=== PATIENT | female | born 1985 | race African-American/Black ===

== ENCOUNTER 2016-04-06 21:58 | Emergency (ER) | payer SELFPAY ==
[~2016-04-06] VITALS: Ht 167.6 cm; Wt 61.5 kg
[2016-04-06 22:01] VITALS: BP 136/91; PULSE 79; RESP 18; TEMP 98; O2SAT 99
[2016-04-06] MEDS ORDERED: MAGICADU2 SWISH-SWAL (23:30)
[2016-04-06] MEDS ORDERED: PRED15UDC PO (23:30)
--- NOTE | 2016-04-06 23:34 | PD ---
HPI Chief Complaint: Oral / Dental Pain or Problem Time Seen by Provider: 23:31 Travel History International Travel<30 days: No Contact w/Intl Traveler<30days: No Traveled to known affect area: No History of Present Illness HPI 30-year-old black female presents to emergency department with a 2 day history of pain in her tongue and a blister on her left inner upper lip. She denies any history of herpes. The patient states that she has had subjective fever and chills. She denies any ear pain, cough, congestion, nausea, vomiting, diarrhea or urinary symptoms. PFSH Past Medical History Cancer: No Cardiovascular Problems: No Diabetes: No Diminished Hearing: No Endocrine: No Genitourinary: No Hepatitis: No Hiatal Hernia: No Hypertension: Yes (not on medications) Immune Disorder: No Musculoskeletal: No Neurologic: No Psychiatric: No Reproductive: No Respiratory: No Immunizations Current: Yes Thyroid Disease: No Tetanus Vaccination: < 5 Years ?: Not LMP: 03/16/16 Tubal Ligation: Yes Past Surgical History Narrative Surgical Tubal ligation AICD: No Gynecologic Surgery: Yes (TUBAL LIG.) Joint Replacement: No Pacemaker: No Other Surgery: Yes Social History Alcohol Use: No Tobacco Use: No Substance Use: No Allergies-Medications (Allergen,Severity, Reaction): Coded Allergies: Penicillin (Verified Allergy, Mild, HIVES, 04/06/16) Reported Meds & Prescriptions Reported Meds & Active Scripts Active No Active Prescriptions or Reported Medications Review of Systems Except as stated in HPI: all other systems reviewed are Neg Physical Exam Narrative GENERAL: Well-developed, well-nourished in no acute distress. Nontoxic appearing. HEAD: Normocephalic, atraumatic. EYES: Pupils equal round and reactive. Extraocular motions intact. No scleral icterus. No injection or drainage. ENT: TMs clear without erythema. The external auditory canals clear. Nose: clear . Posterior pharynx is pink and moist. No tonsillar edema or exudate. Uvula midline. Airway patent. Patient has a geographic tongue. She also has white hairy tongue. There is a stomatic ulceration of the left upper inner lip measured 1 cm. NECK: Trachea midline.Supple, nontender, moves head freely. No central bony tenderness or spasm. CARDIOVASCULAR: Regular rate and rhythm without murmurs, gallops, or rubs. RESPIRATORY: Clear to auscultation. Breath sounds equal bilaterally. No wheezes , rales, or rhonchi. GASTROINTESTINAL: Abdomen soft, non-tender, nondistended. No hepato-splenomegaly , or palpable masses. No guarding. EXTREMITIES: No clubbing, cyanosis, or edema. No joint tenderness, effusion, or edema noted. BACK: Nontender without deformity or crepitance. No flank tenderness. Data Data Last Documented VS Vital Signs Date Time Temp Pulse Resp B/P Pulse Ox O2 Delivery O2 Flow Rate FiO2 04/06/16 22:01 98.0 79 18 136/91 99 Room Air MDM Medical Decision Making Medical Screen Exam Complete: Yes Emergency Medical Condition: Yes Medical Record Reviewed: Yes Differential Diagnosis MDM: High Differential diagnoses: Strep throat, viral pharyngitis, mono, peritonsillar abscess, retropharyngeal abscess, Dax's angina, stomatitis Narrative Course The patient appears to have stomatitis and geographic tongue Diagnosis Primary Impression: Stomatitis Additional Impression: Geographic tongue Patient Instructions: General Instructions Additional Instructions: Rest. Force fluids. Saltwater gargles. Tylenol and Advil. Chloraseptic [place] Cepastat lozenge. Orapred and Magic mouthwash.. Follow-up with a primary care doctor in one week. Return to the ER if any problems. Med/Other Pt SpecificInfo: Prescription(s) given Scripts Bcqpeqft-Lqpchwtrnruxpxa-Rxqdsuhwv Liq (Magic Mouthwash Adult Liq)120 Ml Susp5 Ml SWISH-SWAL Q3HR #120 ML Ref 1 Each 5 mL contains: Nystatin 200,000 units, Diphenhydramine 4.25 mg, Viscous Lidocaine 10 mg, [place] syrup 0.8 mL Prov:Christine Underwood MD 04/06/16 Prednisolone Liq 15 Mg/5 Ml Soln10 Mg PO BID #80 ML Ref 0 Prov:Christine Underwood MD 04/06/16 Disposition: 01 DISCHARGE HOME Condition: Stable Ronald Jean Apr 06, 2016 23:34
== END 2016-04-06 23:45 | disposition home or self-care (01) ==
LOC: NEPB 21:58
DX: K14.1 Geographic tongue (principal); I10 Essential (primary) hypertension
CPT/HCPCS: 99283